=== PATIENT | female | born 1985 | race Caucasian/White ===

== ENCOUNTER → 2023-01-15 09:21 | Outpatient (BNVA) | payer MEDICAID, SELFPAY | PROVIDERS: Visit Provider Podiatrist Foot & Ankle Surgery | DX: M79.672 Pain in left foot (principal); M79.89 Other specified soft tissue disorders | CPT/HCPCS: 73630; 99204 ==

== ENCOUNTER 2023-02-01 06:57 | Outpatient (CLI) | payer MEDICAID, SELFPAY ==
--- NOTE | 2023-02-01 07:15 | MR_ITS ---
WS: [id number] MRI LEFT FOOT without CONTRAST. COMPARISON: LEFT foot radiograph 01/15/2023. Multiplanar, multisequence imaging is performed without contrast. MRI marker are placed along the plantar surface of the calcaneus at the site of the palpable nodules. There is a nodule along the posterior plantar surface of the calcaneus measuring 9 x 12 x 8 mm. Ther e is an additional nodule along the more lateral plantar surface of the calcaneus measuring 10 x 9 x 9 mm. Both these nodules are low signal on the T1 sequence and increased on the T2 sequence. These ar e not well formed and infiltrate through the lobular septa of the fat pad. These are very superficial and there is no extension into the plantar fascia. The distal Achilles tendon is normal. No fractures or marrow edema in the calcaneus or talus. The vis ualized peroneal tendons are normal. MR/MR foot LT wo con* [id number] IMPRESSION: 1. Palpable nodules are identified in the posterior lateral calcaneal fat pad. These nodules are interspersed between the lobular septa. Most likely nodular edema and fibrosis of the fat pad. These are separate from the plantar fascia. Changes such as necrosis can be noted in the calcaneal fat pad. May be related to stress loading or even rheumatoid arthritis. 2. No involvement of the plantar fascia.
== END 2023-02-01 06:58 | disposition home or self-care (01) ==
PROVIDERS: PCP Family Medicine; Visit Provider Podiatrist Foot & Ankle Surgery
DX: M79.89 Other specified soft tissue disorders (principal); R22.42 Localized swelling, mass and lump, left lower limb
CPT/HCPCS: 73630; 73718; 99204

== ENCOUNTER → 2023-03-12 15:20 | Outpatient (BNVA) | payer MEDICAID, SELFPAY | PROVIDERS: PCP Family Medicine; Visit Provider Podiatrist Foot & Ankle Surgery | DX: M79.672 Pain in left foot (principal); M79.89 Other specified soft tissue disorders | CPT/HCPCS: 99213 ==